=== PATIENT | female | born 1980 | race Caucasian/White ===

== ENCOUNTER 2024-05-07 01:32 | Emergency (ER) | payer MEDICAID ==
[~2024-05-07] VITALS: Ht 162.6 cm; Wt 63.5 kg
[2024-05-07 01:40] VITALS: BP 124/78; PULSE 104; RESP 18; TEMP 99.8; O2SAT 98
[2024-05-07 02:14] LABS: APPEARANCE,URINE HAZY (CLEAR); BILIRUBIN,URINE NEGATIVE (NEGATIVE); BLOOD, URINE 3+ (NEGATIVE); COLOR,URINE YELLOW (YELLOW); LEUKOCYTE ESTERASE ,URINE NEGATIVE (NEGATIVE); NITRITE, URINE NEGATIVE (NEGATIVE); PROTEIN,URINE NEGATIVE (NEGATIVE); UGLUCOSE NEGATIVE (NEGATIVE)
[2024-05-07 02:27] LABS: BACTERIA,URINE 2+ /HPF (None Seen); RBC,URINE 0-5 /HPF (0-5); SQUAMOUS EPITHELIAL CELL,UR 4-10 (MOD) /LPF (0-3 (FEW)); URINE AMORPHOUS URATE 1+ /HPF (None Seen); WBC,URINE 0-5 /HPF (0-5)
[2024-05-07] MEDS: NACL 0.9% 500 ML IV ONE (02:32)
[2024-05-07] MEDS: KETOROLAC 30 MG/ML VIAL IVP ONE (02:32)
[2024-05-07 02:35] LABS: BASOPHILS % (AUTO) 0.3 % (0.0-2.0); EOSINOPHILS # (AUTO) 0.2 K/uL (0-0.4); HEMATOCRIT 42.1 % (36-48); HEMOGLOBIN 14.1 g/dL (12.0-16.0); LYMPHOCYTES # (AUTO) 1.6 K/uL (2.5-16.5); LYMPHOCYTES % (AUTO) 23.2 % (20.5-51.1); MEAN CORPUSCULAR HEMOGLOBIN 30 pg (27-31); MEAN CORPUSCULAR HGB CONC 34 g/dL (33-37); MEAN CORPUSCULAR VOLUME 89.8 fL (80-94); MONOCYTES # (AUTO) 0.9 K/uL (0.8-1.0); MONOCYTES % (AUTO) 13.1 % (1.7-9.3); NEUTROPHILS # (AUTO) 4.2 K/uL (1.8-7.7); NEUTROPHILS % (AUTO) 60.4 % (42.2-75.2); PLATELET COUNT (AUTO) 333 K/uL (140-450); RED BLOOD CELL COUNT(AUTO) 4.69 MIL/uL (4.20-5.40); WHITE BLOOD COUNT (AUTO) 6.9 K/uL (4.8-10.8)
[2024-05-07 02:45] LABS: ANION GAP 12.7 (8-16); CALCIUM 9.3 mg/dL (8.5-10.1); CREATININE 0.8 mg/dL (0.6-1.3); POTASSIUM 3.7 mmol/L (3.5-5.1)
[2024-05-07 02:50] LABS: ALBUMIN 4.4 g/dL (3.4-5.0); BILIRUBIN,DIRECT 0.1 mg/dL (0.0-0.3); TOTAL BILIRUBIN 0.2 mg/dL (0.0-1.0); TOTAL PROTEIN, SERUM 8.1 g/dL (6.4-8.2)
[2024-05-07] MEDS: metroNIDAZOLE 500 MG/NS PREMIX 100 ML IV ONE (03:47)
[2024-05-07] MEDS ORDERED: LEVO-481 PO (04:35)
[2024-05-07] MEDS ORDERED: METR-435 PO (04:35)
[2024-05-07] MEDS ORDERED: cefTRIAXone 1,000 MG VIAL ONE (04:42)
[2024-05-07 05:52] VITALS: BP 124/78; PULSE 104; RESP 18; TEMP 99.8; O2SAT 98
== END 2024-05-07 05:55 | disposition home or self-care (01) ==
LOC: MED 01:32
DX: N39.0 Urinary tract infection, site not specified (principal); R50.9 Fever, unspecified; N76.0 Acute vaginitis; B96.89 Other specified bacterial agents as the cause of diseases classified elsewhere; Z79.2 Long term (current) use of antibiotics; Z79.899 Other long term (current) drug therapy
CPT/HCPCS: 36415; 76856; 80048; 80076; 81001; 81025; 85025; 87040; 87086; 87210; 96361; 96365; 96367; 96375; 99285; J0696; J1885; J3490; J7030; Q0092

== ENCOUNTER 2024-07-19 16:34 | Emergency (ER) | payer MEDICAID ==
[~2024-07-19] VITALS: Ht 162.6 cm; Wt 62.1 kg
[~2024-07-19 16:34] MED LIST: LEVO-481 PO; METR-435 PO
[2024-07-19 17:16] VITALS: BP 134/89; PULSE 91; RESP 18; TEMP 98.1; O2SAT 98
[2024-07-19] MEDS ORDERED: MORPHINE SULFATE 4 MG/ML SYR IM ONE (17:35)
[2024-07-19] MEDS: KETOROLAC 30 MG/ML VIAL IM ONE (18:02)
[2024-07-19] MEDS ORDERED: METH-1681 PO (21:13)
[2024-07-19] MEDS ORDERED: ACET-8905 PO (21:13)
[2024-07-19] MEDS ORDERED: NAPR-1704 PO (21:13)
[2024-07-19 21:23] VITALS: BP 134/89; PULSE 91; RESP 18; TEMP 98.1; O2SAT 98
--- NOTE | 2024-07-19 21:23 | NUR ---
first contact with patient; Patient discharged with v/s stable. Written and verbal after care instructions given and explained. Patient alert, oriented and verbalized understanding of instructions. Ambulatory with steady gait. All questions addressed prior to discharge. ID band removed. Patient advised to follow up with PMD. Rx given. Patient educated on indication of medication including possible reaction and side effects. Opportunity to ask questions provided and answered.
== END 2024-07-19 21:23 | disposition home or self-care (01) ==
LOC: MED 16:34
DX: R68.84 Jaw pain (principal); Z79.899 Other long term (current) drug therapy
CPT/HCPCS: 70110; 96372; 99283; J1885